=== PATIENT | male | born 2000 | race Caucasian/White ===

== ENCOUNTER 2025-02-19 07:00 | Emergency (ER) | payer MEDICAID, OTHER ==
[~2025-02-19] VITALS: Ht 167.6 cm; Wt 102.2 kg
[2025-02-19 07:04] VITALS: BP 131/93; TEMP 97.6; O2SAT 100
[2025-02-19] MEDS ORDERED: MIDOTAB PO (07:11)
[2025-02-19] MEDS ORDERED: ACET-683 PO (07:29)
[2025-02-19] MEDS ORDERED: AMOX875T PO (07:29)
[2025-02-19] MEDS ORDERED: IBUP-1022 PO (07:29)
[2025-02-19] MEDS: AMOXICILLIN 500 MG CAP PO ONE (08:07)
[2025-02-19] MEDS: IBUPROFEN 600MG TAB PO ONE (08:07)
[2025-02-19] MEDS: ACETAMINOPHEN 500 MG TAB PO ONE (08:09)
== END 2025-02-19 08:10 | disposition home or self-care (01) ==
LOC: EDBD 07:00 → M ED 07:00
DX: K02.9 Dental caries, unspecified (principal); F17.290 Nicotine dependence, other tobacco product, uncomplicated; Z79.1 Long term (current) use of non-steroidal anti-inflammatories (NSAID); Z79.2 Long term (current) use of antibiotics

== ENCOUNTER 2025-02-19 17:49 | Emergency (ER) | payer MEDICAID, OTHER ==
[~2025-02-19] VITALS: Ht 170.2 cm; Wt 102.4 kg
[~2025-02-19 17:49] MED LIST: ACET-683 PO; AMOX875T PO; IBUP-1022 PO; MIDOTAB PO
[2025-02-19 21:32] VITALS: BP 148/99; TEMP 97.7; O2SAT 97
== END 2025-02-19 21:35 | disposition home or self-care (01) ==
LOC: M ED 17:49
DX: K08.89 Other specified disorders of teeth and supporting structures (principal); Z79.1 Long term (current) use of non-steroidal anti-inflammatories (NSAID); Z79.2 Long term (current) use of antibiotics